=== PATIENT | female | born 1945 ===

== ENCOUNTER → 2024-12-11 08:59 | Emergency (ER) | payer MEDICARE, SELFPAY ==
[2024-12-11 09:02] VITALS: BP 179/82
[2024-12-11 09:03] LABS: Glucose - Point of Care 44 mg/dl (70-99)
[2024-12-11 09:04] VITALS: BP 179/82
[2024-12-11 09:42] LABS: % Basophils 0.4 % (0-2); % Eosinophils 1.5 % (0-6); % Immature Granulocytes 0.7 % (0-0.5); % Lymphocytes 8.9 % (20.5-51.1); % Monocytes 4.5 % (1.7-9.3); Absolute Basophils 0.1 10^3/uL (0-0.2); Absolute Eosinophils 0.2 10^3/uL (0-0.7); Absolute Immature Granulocytes 0.1 10^3/uL (0-0.05); Absolute Lymphocytes 1.2 10^3/uL (1.2-3.4); Absolute Monocytes 0.6 10^3/uL (0.1-0.6); Absolute Neutrophils 10.9 10^3/uL (1.4-6.5); Hematocrit 34.4 % (37.0-47.0); Hemoglobin 11.1 g/dL (12.0-16.0); Mean Corp Hgb Conc. 32.3 g/dL (33.0-37.0); Mean Corpuscular Hgb 29.5 pg (27.0-31.0); Mean Corpuscular Volume 91.5 fL (81.0-99.0); Nucleated Red Blood Cells % 0 %; Red Blood Cell Count 3.76 10^6/uL (4.20-5.40); Red Cell Dist. Width 14.3 % (11.5-14.5)
[2024-12-11 09:57] LABS: Blood Urea Nitrogen 10 mg/dl (7-17); Carbon Dioxide 29 mmol/L (22-30); Chloride 104 mmol/L (98-107); Glucose 115 mg/dl (70-99); Sodium 141 mmol/L (135-145); eGFR > 60.00
[2024-12-11 10:00] VITALS: BP 140/62
[2024-12-11 10:18] LABS: Glucose - Point of Care 212 mg/dl (70-99)
--- NOTE | 2024-12-11 10:45 | CM ---
Addendum entered by Brianna Dowling RN 12/11/24 11:26:
Mack spoke with Rory from [facility]. Patient has been with [facility] for two days. As per Rory, there was a nursing issue regarding care, but that appeared to be resolved. Patient's family stated that they feels they are unable to
manage her blood sugar. CM stated that patient cannot be admitted for placement only . CM advised family to speak with [facility] to switch facilities. Family expressed understanding.
Original Note:
MACK spoke with Greg from [facility] for further information on patient's admission to facility.
[2024-12-11 12:05] LABS: Glucose - Point of Care 253 mg/dl (70-99)
--- NOTE | 2024-12-11 12:19 | ED.GENMED ---
History of Present Illness
General
Chief Complaint: Blood Sugar Problem
Source: patient and long-term
Exam Limitations: none
Time Seen by Provider: 12/11/24 09:07
History of Present Illness
History of Present Illness:
Patient noted to be confused and lethargic this morning. Blood sugar was 40 at the time. Patient has not been eating well the last few days. She is here for rehabilitation. Repeat blood sugar was 30. She was given glucagon. Much better on
arrival to the ER. No acute complaints now. She is on oral hypoglycemic medic
Review of Systems
Review of Systems
All Other Systems: Not applicable
Respiratory: Reports no symptoms
Cardiac: Reports no symptoms
Phy Exam
Physical Exam
Physical Exam:
GENERAL: Alert and oriented in no apparent distress. Elderly and frail
EYE: Orbits normal.
NECK: Supple, no significant adenopathy.
ENT: Pharynx without erythema
CARDIAC: Regular rate and rhythm without any obvious murmurs.
LUNGS: Clear breath sounds,normal
ABDOMEN: Soft, without focal tenderness or distention. Indwelling Das
NEUROLOGICAL: Alert and oriented , grossly non-focal. Speech normal. Cranial nerves II through XII intact
SKIN: Warm and dry, no rash or lesion, no discoloration, skin intact.
MUSCULOSKELETAL: No edema,no deformity.Good color
PSYCH: Normal and appropriate interaction.
Course
Orders/Labs/Results
Orders:
Orders
12/11/24 09:07
Electrocardiogram (*1) Stat
Reason for Study: Other
Other Reason for Exam: neuro symptoms
CT Head W/o Iv Contrast Urgent
Comment:
Reason For Exam: Change in mental status
Cardiac Monitoring- Treatment ONCE
EKG- Treatment ONCE
IV Insert/Care/Rem.- Treatment PRN
Pulse Ox/cont/shift [RESP] Stat
Quantity: 1
12/11/24 09:18
Basic Metabolic Panel Urgent
Complete Blood Count/With Diff Urgent
12/11/24 10:19
Case Management Consult ONCE
Case Management Consult: Other
Requested By:: PT/FAMILY
Comment: Pt requesting new rehab placement. Pt at [facility] s/p L hip fracture/replacement.
12/11/24 12:24
Urinalysis Reflex To Culture Urgent
Date Specimen was Collected: 12/11/24
Time Specimen was Collected: 12:32
Abnormal Lab Results
12/11/24 12/11/24 12/11/24
09:02 09:18 10:10
WBC 13.0 H 10^3/uL
(4.8-10.8)
RBC 3.76 L 10^6/uL
(4.20-5.40)
Hgb 11.1 L g/dL
(12.0-16.0)
Hct 34.4 L %
(37.0-47.0)
MCHC 32.3 L g/dL
(33.0-37.0)
Abs Immat Gran (auto) 0.1 H 10^3/uL
(0-0.05)
Absolute Neuts (auto) 10.9 H 10^3/uL
(1.4-6.5)
Immature Gran % 0.7 H %
(0-0.5)
Neutrophils % 84.0 H %
(42.2-75.2)
Lymphocytes % 8.9 L %
(20.5-51.1)
Creatinine 0.3 L mg/dL
(0.6-1.0)
Glucose 115 H mg/dl
(70-99)
POC Glucose 44 L* mg/dl 212 H mg/dl
(70-99) (70-99)
12/11/24
11:59
WBC
RBC
Hgb
Hct
MCHC
Abs Immat Gran (auto)
Absolute Neuts (auto)
Immature Gran %
Neutrophils %
Lymphocytes %
Creatinine
Glucose
POC Glucose 253 H mg/dl
(70-99)
12/11/24 09:18
12/11/24 09:18
Vital Signs
Initial and Last Documented VS:
Initial Vital Signs
Temp Pulse Resp BP Pulse Ox
98.3 F 75 16 179/82 99
12/11/24 09:02 12/11/24 09:02 12/11/24 09:02 12/11/24 09:02 12/11/24 09:02
Last Documented Vital Signs
Temp Pulse Resp BP Pulse Ox
98.3 F 87 24 140/62 100
12/11/24 09:02 12/11/24 10:15 12/11/24 10:15 12/11/24 10:00 12/11/24 10:15
MDM/Problems Addressed
Differential Diagnosis Includes:
Symptoms all consistent with hypoglycemia. Highly doubt central neurologic issue. Has remained stable. CT negative. Neurologic exam normal. Blood sugars remained stable. Recommend holding glipizide watch blood sugars closely and follow-up. Do
not feel she is an acute infectious issue. Likely a reactive leukocytosis.
*Radiology
Radiology exam reviewed: radiology read reviewed (Negative head CT)
*Pulse Oximetry
Patient hypoxic: no
*EKG
Interpreted by ED Provider?: Yes
Interpretation: abnormal
Comparison EKG: no comparison EKG present
Heart Rate: 73
Rate: normal
Rhythm: sinus
[place]: normal axis
Interval: normal interval
QRS Pattern: normal QRS
Ischemia: non-specific ST changes
*[employer] Interpretation
Rate: normal
Interpretation: normal
Heart Rate: 77
Rhythm: sinus
*Critical Care Note
Total Time (30-74mins, 75-104mins- exclusive of procedures): Not Applicable
Update Note
Update Note:
1220... Patient is remained stable and nontoxic. Benign neurologic exam workup unremarkable. Repeat blood sugars have been stable. They can monitor her blood sugars at the facility. Hold glipizide.. Leukocytosis is likely reactive. Patient has
no acute infectious symptoms. Has a indwelling Das. We will send a urine culture although doubt that this is a infected Das issue at this time. This was discussed with the daughter
ED Attending Note
-
Portions of this chart may have been created with voice recognition software.� Occasional wrong word or��sound alike� substitutions may have occurred due to the inherent limitations of voice recognition software.
Discharge Plan
Departure
Patient Disposition: Home (Routine Discharge)
Date of Disposition: 12/11/24
Time of Disposition: 12:20
Patient with high blood pressure during this ER visit?: Yes
Discharge Problem:
Hypoglycemia
Instructions: Low blood sugar in people with diabetes, BLOOD PRESSURE
Referrals:
Angie Vazquez MD [Family Provider] - Follow up in 2-3 days
Activity Restrictions/Additional Instructions:
With patient's poor diet recently, would hold on the oral diabetic medication for now.
Recommend checking blood sugars before meals and at bedtime
Interventions
Interventions:
*Risk Screen - Suicide Last Done: 12/11/24 09:02
*General Assessment Last Done: 12/11/24 10:03
*Neglect/Abuse Screening Last Done: 12/11/24 09:02
*ED- Fall Risk Assessment Last Done: 12/11/24 10:03
*ED COVID-19 Vaccine History Last Done: 12/11/24 10:03
ED- Neurological Assessment Last Done: 12/11/24 09:42
Discharge Date and Time
Print Language: MALIAN
[2024-12-11 12:51] LABS: Urine Albumin Negative (Neg - Trace); Urine Bilirubin Negative (Negative); Urine Character Clear (Clear); Urine Color Yellow; Urine Glucose 4+ (Negative); Urine Ketone Negative (Negative); Urine Leukocyte 2+ (Negative); Urine Nitrite Negative (Negative); Urine Occult Blood 4+ (Negative); Urine Specific Gravity 1.015 (<1.030); Urine Urobilinogen 1+ (Neg - 1+)
[2024-12-11 13:35] LABS: Urine Amorphous Seen; Urine Squamous Cell 0-2 /LPF (Few)
[2024-12-11 13:36] LABS: Urine Bacteria Moderate (Negative); Urine Red Blood Cell 30-40 /HPF (0-2)
[2024-12-11 14:11] LABS: Glucose - Point of Care 196 mg/dl (70-99)
[2024-12-11 14:12] VITALS: BP 126/74
== END | disposition home or self-care (01) ==
LOC: EMR 08:59
PROVIDERS: EMERGENCY PHYSICIAN Emergency Medicine; FAMILY PHYSICIAN Internal Medicine; REFERRING PHYSICIAN Internal Medicine
DX: E16.2 Hypoglycemia, unspecified (principal)
CPT/HCPCS: 99284; 70450; 80048; 81003; 81015; 82962; 85025; 87077; 87086; 93005